=== PATIENT | female | born 1940 | race Asian ===

== ENCOUNTER 2017-11-05 01:17 | Inpatient (IN) | payer OTHER, MEDICAID, MEDICARE ==
--- NOTE | 2017-11-05 01:52 | ED Physician Chart ---
ED Chief Complaint/HPI - Patient Information Date Seen:: 11/05/17 Time Seen:: 01:35 Chief Complaint:: shortness of breath History of Present Illness:: Patient states shortness of breath for 1 week. No chest pain. No fever. Patient has had a cough productive of whitish sputum. Allergies:: Allergies Allergy/AdvReac Type Severity Reaction Status Date / Time aspirin Allergy Verified 09/02/17 17:07 Vitals:: Vital Signs - 8 hr 11/05/17 11/05/17 01:25 01:27 Temp 97.8 F 98 F HR 112 115 RR 28 20 BP 158/71 158/71 O2 Sat % 95 93 Historian:: Patient Review:: Nurse's Note Reviewed ED Review of Systems - Review of Systems General/Constitutional: No fever, No chills Skin: No skin lesions Head: No headache Eyes: No loss of vision ENT: No earache Neck: No neck pain, No swelling Cardio Vascular: No chest pain Pulmonary: SOB, Cough GI: No nausea, No vomiting, No diarrhea G/U: No dysuria Musculoskeletal: No bone or joint pain Endocrine: No polyuria Psychiatric: No prior psych history, No depression Hematopoietic: No bruising Allergic/Immuno: No urticaria Neurological: No syncope ED Past Medical History - Past Medical History Past Medical History: HTN, Asthma/COPD, Other (ascites) Family History: HTN, Other (asthma) Social History: Non Smoker, No Alcohol Surgical History: Appendectomy, Cholecystectomy Psychiatricy History: None Medication: Reviewed Family Medical History - Family Member Mother Ethnicity: Non- Living Status: Hx Family Cancer: No Hx Family Coronary Artery Disease: No Hx Family Congestive Heart Failure: No Hx Family Hypertension: No Hx Family Stroke: No Hx Family Diabetes: No Hx Family Seizures: No Hx Family Dementia: No Hx Family AIDS: No Hx Family HIV: No Hx Family COPD: No Hx Family Hepatitis: No Hx Family Psychiatric Problems: No Hx Family Tuberculosis: No Father Hx Family Hypertension: Yes ED Physical Exam - Physical Examination General/Constitutional: Well-developed, well-nourished, Alert, No distress Head: Atraumatic Eyes: Lids, conjuctiva normal Skin: Nl inspection, No rash ENMT: External ears, nose nl, TM canals nl, Nasal exam nl Neck: No nuchal rigidity Respiratory: Nl effort/Exclusion Other Respiratory comments:: diffuse 3/4 expiratory wheezing Cardio Vascular: RRR GI: No tenderness/rebounding/guarding, No organomegaly, No hernia, Normal BS's : No CVA tenderness Extremities: Normal digits & nails Neuro/Psych: Alert/oriented, Judgement/insight normal ED Labs/Radiology/EKG Results - Lab Results Comments:: Laboratory Results - last 24 hr 11/05/17 11/05/17 11/05/17 02:00 02:00 02:00 WBC 8.9 RBC 4.09 Hgb 12.6 Hct 38.3 L MCV 93.6 MCH 30.9 MCHC Differential 32.9 RDW 13.2 Plt Count 232 MPV 8.0 Neutrophils % 78.0 Lymphocytes % 18.9 L Monocytes % 3.0 Eosinophils % 0.0 Basophils % 0.1 Sodium 126 L Potassium 3.7 Chloride 94 L Carbon Dioxide 22.8 Anion Gap 12.9 BUN 11 Creatinine 0.5 L Est GFR ( Amer) TNP Est GFR (Non-Af Amer) TNP BUN/Creatinine Ratio 22.0 Glucose 146 H Calcium 9.3 Troponin I B-Natriuretic Peptide 26.5 11/05/17 02:00 WBC RBC Hgb Hct MCV MCH MCHC Differential RDW Plt Count MPV Neutrophils % Lymphocytes % Monocytes % Eosinophils % Basophils % Sodium Potassium Chloride Carbon Dioxide Anion Gap BUN Creatinine Est GFR ( Amer) Est GFR (Non-Af Amer) BUN/Creatinine Ratio Glucose Calcium Troponin I 0.01 B-Natriuretic Peptide - EKG Interpretations Rate & Rhythm: sinus tachycardia with a rate of 104 [place]: normal Comments:: Old septal myocardial infarction ED Assessment - Assessment General Assessment: At 0600 patient felt better; auscultation of the anterior chest revealed prolonged expiratory phase and externally wheezing. ED Septic Shock - . Is Septic Shock (SBP<90, OR Lactate>4 mmol\L) present?: No - <6hrs of presentation: Vital Signs: Vital Signs - 8 hr 11/05/17 11/05/17 01:25 01:27 Temp 97.8 F 98 F HR 112 115 RR 28 20 BP 158/71 158/71 O2 Sat % 95 93 ED Reassessment (Disposition) - Reassessment Reassessment Condition:: Improved - Diagnosis Diagnosis:: Acute exacerbation asthma - Patient Disposition Admitted to:: Med/Surg Admitting Medical Physician:: Romero Reyes Condition at Disposition:: Stable, Improved
[2017-11-05 02:09] LABS: % BASOPHILS 0.1 % (0.0-2.0); % LYMPHOCYTES 18.9 % (20.0-50.0); HEMATOCRIT 38.3 % (41.0-60); HEMOGLOBIN 12.6 gm/dL (12-16); LYMPHOCYTE ABSOLUTE 1.7 Th/cmm (1.5-3.0); MEAN CELL VOLUME 93.6 fl (81-100); MEAN CORPUSCULAR HEMOGLOBIN 30.9 pg (27.0-31.0); MEAN CORPUSCULAR HGB CONC 32.9 pg (28.0-36.0); MONOCYTE ABSOLUTE 0.3 Th/cmm (0.3-1.0); NEUTROPHILE ABSOLUTE 6.9 Th/cmm (1.8-8.0); PLATELET COUNT 232 Th/cmm (150-400); RED BLOOD COUNT 4.09 Mil/cmm (3.80-5.20); RED CELL DISTRIBUTION WIDTH 13.2 % (11.5-20.0); WHITE BLOOD COUNT 8.9 Th/cmm (4.8-10.8)
[2017-11-05 02:24] LABS: ANION GAP 12.9 (7.0-16.0); BUN - UREA NITROGEN 11 mg/dL (7-25); CALCIUM SERUM 9.3 mg/dL (8.6-10.3); CARBON DIOXIDE 22.8 mEq/L (21.0-31.0); CHLORIDE 94 mEq/L (98-107); CREATININE - SERUM 0.5 mg/dL (0.6-1.2); GLUCOSE 146 mg/dL (70-105); POTASSIUM SERUM 3.7 mEq/L (3.5-5.1); SODIUM SERUM 126 mEq/L (136-145)
--- NOTE | 2017-11-05 07:52 | Diagnostic Imaging Report ---
Exam: Chest frontal exam HISTORY: Shortness of breath. Findings: Frontal examination of chest was reviewed, no prior studies available comparison. The study demonstrates no active pulmonic infiltrates or effusions. Mediastinal structures midline the aortic arch calcified the costophrenic angles are clear. IMPRESSION: no acute disease.
[2017-11-05] MEDS ORDERED: Albuterol/Ipratropium Neb 3 ML AERS HHN ONE (09:22)
[2017-11-05] MEDS: Albuterol/Ipratropium Neb 3 ML AERS HHN PRN (09:25)
[2017-11-05] MEDS: Calcium Carb/Vit D 500 mg/200 U Tab PO SCH (10:56)
[2017-11-05] MEDS ORDERED: Azithromycin 500 MG in Sodium Chloride 0.9% 250 ML IV SCH (11:00)
[2017-11-05] MEDS: Albuterol/Ipratropium Neb 3 ML AERS HHN SCH ×2 (12:40→20:32)
--- NOTE | 2017-11-05 13:39 | History & Physical ---
ADMIT DATE: 11/05/2017 PATIENT'S IDENTIFICATION: A 77-year-old female. CHIEF COMPLAINT: Shortness of breath. HISTORY OF PRESENT ILLNESS: A 77-year-old female with history of hypertension, asthma, COPD, history of ascites in the past, presented to Emergency Room for evaluation of shortness of breath for 1 week duration. The patient was treated outpatient with prednisone antibiotic with no improvement. The patient stated that her cough is productive in nature and being a white sputum. The patient denies any fever or chills. The patient denies any chest pain, denies any abdominal pain, denies any nausea, vomiting, diarrhea, dysuria, hematuria, hematochezia, melena. PAST MEDICAL HISTORY: Remarkable for: 1. Hypertension. 2. Asthma, COPD. 3. Gout. 4. DJD. MEDICATIONS: List has been reviewed and reconciled appropriately. ALLERGIES: The patient is allergic to aspirin. SOCIAL HISTORY: The patient lives with the family. No smoking, alcohol, or drug use. FAMILY HISTORY: Remarkable for hypertension. PAST SURGICAL HISTORY: Remarkable for appendectomy and cholecystectomy. REVIEW OF SYSTEMS: The patient denies any headache, blurred vision, double vision, dysphagia, odynophagia, runny nose, stuffy nose, fever, chills, abdominal pain, nausea, vomiting, diarrhea, dysuria, hematuria, hematochezia, melena, no seizure or syncopal episode. PHYSICAL EXAMINATION: GENERAL: The patient is alert, awake, oriented, lying in the bed. VITAL SIGNS: Temperature 97.8, pulse is 112, respiratory rate 20 and blood pressure 158/70. HEENT: Normocephalic, atraumatic. Extraocular muscles intact. Tongue more pink and coated. Poor dentition noted. No oral lesion, no exudate. No sinus tenderness. Oropharynx is congested. NECK: Supple, no JVD, no hepatojugular reflex. No lymphadenopathy, thyromegaly or carotid bruit. HEART: Both heart sounds are regular. No S3, no S4, no murmur. CHEST AND LUNGS: Equal in expansion, expiratory wheezing throughout. ABDOMEN: Soft, no guarding, no rigidity. Liver and spleen not palpable. No palpable mass. EXTREMITIES: No edema, no cyanosis or clubbing. Peripheral +2. No calf tenderness. NEUROLOGIC: Nonfocal. AVAILABLE DIAGNOSTIC DATA: White count of 8.9, hemoglobin 12.6, platelet count 232, BUN and creatinine is 11 and 0.5, glucose of 146, calcium of 9.3. B-type natriuretic peptide is 26.5. Chest x-ray done in the Emergency Room consistent with no acute cardiopulmonary disease. CLINICAL IMPRESSION: 1. Asthma, chronic obstructive pulmonary disease exacerbation. 2. Respiratory failure. 3. Outpatient treatment failure. 4. Hypertension. 5. Gout. 6. Degenerative joint disease. 7. Debility. PLAN: 1. Admit this patient to Med/Surg floor. 2. Oxygen. 3. IV steroid. 4. IV antibiotic. 5. Nebulizer treatment. 6. Appropriate home medicine reconciliation. 7. Pulmonary consult. 8. Follow lab. 9. Follow makeup sales consultant's recommendation. 10. Care plan reviewed and discussed with staff. JOB# [id number]
[2017-11-05] MEDS: methylPREDNISolone SS 40 mg Vial IVP SCH ×2 (17:08→21:24)
[2017-11-06] MEDS: Albuterol/Ipratropium Neb 3 ML AERS HHN SCH ×4 (01:22→20:03)
--- NOTE | 2017-11-06 02:49 | Consultation ---
DATE OF CONSULTATION: 11/05/2017 PULMONARY AND CRITICAL CARE CONSULTATION NOTE REASON FOR CONSULTATOIN: Shortness of breath. CONSULT NOTE: This is a 77-year-old female and history of chronic bronchial asthma, history of "COPD", presented to the hospital for 1 week history of coughing, stuffing, short of breath. The patient takes some medication including prednisone, but patient's symptoms got worse. The patient came to the hospital for further care and necessary treatment. The patient has coughing, complaints of wheezing, no chest pain, some mucoid color sputum. No fever, no swelling of the legs, no PND, no orthopnea, some chronic sinus congestion, but otherwise unremarkable. Denies of any hemoptysis or chills or fever, etc. PAST MEDICAL HISTORY: History of hypertension, history of chronic bronchial asthma, history of gout, history of degenerative joint disease. SMOKING HISTORY. Nil. ALLERGIC HISTORY: POSSIBLY ASPIRIN, questionable allergy to ____ but otherwise unremarkable. Denies of any other related symptomatology. FAMILY HISTORY: Noncontributory. SURGICAL HISTORY: Includes history of appendectomy and cholecystectomy. PHYSICAL EXAMINATION: GENERAL: This is a thin looking oriental female, awake, mild audibly wheezing, not in any acute distress. VITAL SIGNS: Recorded vitals: Temperature is 97.5, blood pressure 150/75, saturation 100% on 2 liters. HEENT: Head is essentially unremarkable. Pupils appear to be equal and reacting to light. Conjunctivae are slightly pallor. Oral cavity shows small oropharyngeal opening otherwise unremarkable. NECK: No nodes in the neck could be palpated. CHEST: Shows scattered wheezing with diminished air entry. HEART: Regular, slightly tachycardic. ABDOMEN: Soft, nontender. EXTREMITIES: Shows no peripheral edema. LABORATORY DATA: The patient's chest x-ray appears to be clear. The patient's white count is 8.9, hemoglobin 12.6, eosinophils 0, creatinine 0.5 and glucose of 146. Chest x-ray showed borderline cardiomegaly, otherwise unremarkable. IMPRESSION: 1. The patient has acute on chronic bronchial asthma. Precipitating factor is not clear, question viral source or environmental. 2. Question gastroesophageal reflux. 3. History of questionable ascites in the past. 4. Allergic rhinitis. PLANS AND SUGGESTIONS: We will continue current treatment by Dr. Reyes. We would add inhaled steroid including proton pump inhibitor and we will see how she does in the next 24-48 hours and go from there and I will be glad to follow along with you. JOB# [id number]
[2017-11-06] MEDS: methylPREDNISolone SS 40 mg Vial IVP SCH ×3 (05:02→20:56)
[2017-11-06 06:13] LABS: ALBUMIN 3.6 gm/dL (3.7-5.3); ALKALINE PHOSPHATASE 56 U/L (34-104); ANION GAP 6.9 (7.0-16.0); BILIRUBIN,TOTAL 0.5 mg/dL (0.3-1.0); BUN - UREA NITROGEN 15 mg/dL (7-25); CALCIUM SERUM 9.5 mg/dL (8.6-10.3); CARBON DIOXIDE 24.8 mEq/L (21.0-31.0); CHLORIDE 104 mEq/L (98-107); CREATININE - SERUM 0.6 mg/dL (0.6-1.2); GLUCOSE 141 mg/dL (70-105); POTASSIUM SERUM 3.7 mEq/L (3.5-5.1); SGOT 47 U/L (13-39); SGPT/ALT 30 U/L (7-52); SODIUM SERUM 132 mEq/L (136-145); TOTAL PROTEIN,SERUM 7.1 gm/dL (6.0-8.3)
[2017-11-06] MEDS: Budesonide 0.5 Mg/2 mL Ud HHN SCH ×2 (07:07→20:04)
[2017-11-06 07:22] LABS: % BASOPHILS 0.1 % (0.0-2.0); % EOSINOPHILS 0.2 % (0.0-5.0); % LYMPHOCYTES 14.5 % (20.0-50.0); % NEUTROPHILS 81.2 % (40.0-80.0); HEMATOCRIT 37.1 % (41.0-60); HEMOGLOBIN 12.3 gm/dL (12-16); MEAN CELL VOLUME 93.5 fl (81-100); MEAN CORPUSCULAR HEMOGLOBIN 31.1 pg (27.0-31.0); MEAN CORPUSCULAR HGB CONC 33.2 pg (28.0-36.0); MEAN PLATELET VOLUME 9.2 fl; MONOCYTE ABSOLUTE 0.3 Th/cmm (0.3-1.0); NEUTROPHILE ABSOLUTE 5.4 Th/cmm (1.8-8.0); PLATELET COUNT 214 Th/cmm (150-400); RED BLOOD COUNT 3.97 Mil/cmm (3.80-5.20); RED CELL DISTRIBUTION WIDTH 12.8 % (11.5-20.0); WHITE BLOOD COUNT 6.7 Th/cmm (4.8-10.8)
[2017-11-06 08:56] LABS: pH 7.42 (7.35-7.45)
[2017-11-06] MEDS: Calcium Carb/Vit D 500 mg/200 U Tab PO SCH (09:05)
[2017-11-06] MEDS: Pantoprazole 40 mg EC Tab PO SCH (09:06)
--- NOTE | 2017-11-06 10:55 | Diagnostic Imaging Report ---
Chest x-ray single view History: Shortness of breath Comparison 11/05/2017 The heart size is normal. No focal pulmonary parenchymal processes. No hilar or mediastinal abnormalities. Impression: No acute abnormalities
--- NOTE | 2017-11-06 21:47 | Progress Notes ---
DATE: 11/06/2017 SUBJECTIVE: The patient seen and examined. The patient is lying in the bed. The patient is still complaining about this difficulty in breathing. The patient has a productive cough and congestion. The patient denies any chest pain, nausea or vomiting. PHYSICAL EXAMINATION: VITAL SIGNS: Temperature 97.3, pulse 86, respiratory rate 18, blood pressure 134/72. HEENT: Normocephalic, atraumatic. Extraocular muscles intact. Tongue was pink and coated. NECK: Supple. No JVD, lymphadenopathy, thyromegaly or carotid bruit. HEART: Both heart sounds are regular. CHEST: Lung equal in expansion, expiratory wheezing throughout. ABDOMEN: Soft. No guarding, rigidity. Bowel sounds are present. No palpable mass. EXTREMITIES: No edema. NEUROLOGIC: Nonfocal. CLINICAL IMPRESSION: 1. Acute respiratory failure. 2. Asthma, chronic obstructive pulmonary disease exacerbation. 3. Hypertension. 4. Gout. 5. Degenerative joint disease. 6. Debility. 7. Decline in self-care and mobility. PLAN: 1. Med/Surg status. 2. Continue oxygen. 3. IV steroid. 4. IV antibiotic. 5. Pulmonary toilet. 6. General nursing care. 7. Pulmonary followup. 8. Follow lab. 9. Follow up on consult and recommendation. 10. Care plan reviewed and discussed with staff. JOB# [id number]
[2017-11-07] MEDS: Albuterol/Ipratropium Neb 3 ML AERS HHN SCH ×3 (00:41→19:26)
--- NOTE | 2017-11-07 03:24 | Progress Notes ---
DATE: 11/06/2017 PROBLEM LIST: 1. Acute bronchial asthma. 2. Underlying history of possibly hypertension. SYMPTOMS: The patient is doing much better compared to yesterday. She is able to go to the bathroom without much of shortness of breath, etc. PHYSICAL EXAMINATION: VITAL SIGNS: T-max 96.5, blood pressure 140/68, saturation 100% on 1-2 liters per minute. NECK: Veins not visualized. CHEST: Shows significantly improved wheezing with very minimally residual. HEART: Regular. ABDOMEN: Soft, nontender. LABORATORY DATA: The patient's white count is 6.7, hemoglobin is 12.3 and the patient's electrolytes, sodium is 132 and anion gap is low and pO2 is 54 on room air and the patient's chest x-ray done this morning shows fairly clear. ASSESSMENT: The patient is clinically stable, improving remarkably, still moderately hypoxemic. PLANS AND SUGGESTIONS: We will continue current treatment. 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 We will repeat ABG again for assess need of her O2 and go from there. JOB# [id number]
[2017-11-07] MEDS: methylPREDNISolone SS 40 mg Vial IVP SCH ×3 (05:13→20:45)
[2017-11-07 05:21] LABS: % BASOPHILS 0.1 % (0.0-2.0); % LYMPHOCYTES 19.1 % (20.0-50.0); % NEUTROPHILS 72.8 % (40.0-80.0); HEMATOCRIT 37.1 % (41.0-60); HEMOGLOBIN 12.4 gm/dL (12-16); LYMPHOCYTE ABSOLUTE 1.1 Th/cmm (1.5-3.0); MEAN CELL VOLUME 93.4 fl (81-100); MEAN CORPUSCULAR HEMOGLOBIN 31.3 pg (27.0-31.0); MEAN CORPUSCULAR HGB CONC 33.5 pg (28.0-36.0); MONOCYTE ABSOLUTE 0.5 Th/cmm (0.3-1.0); NEUTROPHILE ABSOLUTE 4.1 Th/cmm (1.8-8.0); PLATELET COUNT 232 Th/cmm (150-400); RED BLOOD COUNT 3.97 Mil/cmm (3.80-5.20); RED CELL DISTRIBUTION WIDTH 13.2 % (11.5-20.0); WHITE BLOOD COUNT 5.7 Th/cmm (4.8-10.8)
[2017-11-07 05:45] LABS: ALB/GLOB RATIO 1.1 (1.0-1.8); ALBUMIN 3.5 gm/dL (3.7-5.3); ALKALINE PHOSPHATASE 52 U/L (34-104); ANION GAP 9.4 (7.0-16.0); BILIRUBIN,TOTAL 0.4 mg/dL (0.3-1.0); BUN - UREA NITROGEN 15 mg/dL (7-25); CALCIUM SERUM 9.3 mg/dL (8.6-10.3); CARBON DIOXIDE 28.9 mEq/L (21.0-31.0); CHLORIDE 99 mEq/L (98-107); CREATININE - SERUM 0.6 mg/dL (0.6-1.2); GLUCOSE 136 mg/dL (70-105); POTASSIUM SERUM 3.3 mEq/L (3.5-5.1); SGOT 37 U/L (13-39); SGPT/ALT 30 U/L (7-52); SODIUM SERUM 134 mEq/L (136-145); TOTAL PROTEIN,SERUM 6.8 gm/dL (6.0-8.3)
[2017-11-07] MEDS: Budesonide 0.5 Mg/2 mL Ud HHN SCH ×2 (06:48→19:26)
[2017-11-07] MEDS ORDERED: Potassium Chloride 20 mEq ER Tab PO ONE (06:49)
[2017-11-07] MEDS: Calcium Carb/Vit D 500 mg/200 U Tab PO SCH (08:56)
[2017-11-07] MEDS: Pantoprazole 40 mg EC Tab PO SCH (08:56)
[2017-11-07 08:59] LABS: pH 7.42 (7.35-7.45)
[2017-11-07] MEDS: Albuterol/Ipratropium Neb 3 ML AERS HHN PRN ×2 (11:33→15:22)
[2017-11-07 16:32] LABS: A1C % 5.7 % (4.0-6.0)
--- NOTE | 2017-11-07 22:04 | Progress Notes ---
DATE: 11/07/2017 SUBJECTIVE: The patient seen and examined. The patient is lying in the bed. The patient continues to cough and congested. The patient remained afebrile. The patient denies any fever, denies any chest pain, abdominal pain, nausea, vomiting, diarrhea. Denies any seizure or syncopal episode. PHYSICAL EXAMINATION: GENERAL: The patient is alert, awake, lying in the bed. VITAL SIGNS: Temperature 98, pulse is 75, respiratory rate 16, blood pressure 139/68. HEENT: No facial asymmetry. NECK: Supple, no JVD. HEART: Regular, no murmur. CHEST AND LUNGS: Equal in expansion, no wheezing, no crackles. ABDOMEN: Soft, no guarding or rigidity. Liver, spleen not palpable. No palpable mass. EXTREMITIES: No edema, no cyanosis. NEUROLOGIC: Nonfocal. CLINICAL IMPRESSION: 1. Chronic obstructive pulmonary disease exacerbation. 2. Respiratory failure. 3. Hypertension. 4. Degenerative joint disease. 5. Gout. 6. Debility. PLAN: 1. Continue oxygen. 2. Nebulizer treatment. 3. Pulmonary toilet. 4. IV antibiotic. 5. IV steroid. 6. Mucinex. 7. General nursing care. 8. Follow lab. 9. Follow consult recommendation. 10. Care plan reviewed and discussed with staff. JOB# [id number]
[2017-11-08] MEDS: Albuterol/Ipratropium Neb 3 ML AERS HHN SCH ×4 (00:18→18:58)
--- NOTE | 2017-11-08 02:36 | Progress Notes ---
DATE: 11/07/2017 PROBLEM LIST: 1. Hypoxemia respiratory failure. 2. Persistent wheezing with chronic bronchial asthma. SYMPTOMS: Nil. SUBJECTIVE: The patient is feeling a little better, still shortness of breath. No other specific new symptoms. PHYSICAL EXAMINATION: VITAL SIGNS: Temperature is 98.5, blood pressure 129/70, saturation 100%. NECK: Veins not visualized. CHEST: Shows diminished air entry with occasional rhonchi. HEART: Regular. ABDOMEN: Soft, nontender. LABORATORY DATA: The patient's WBC is 5.7. ABG shows pO2 of 52. ASSESSMENT: The patient is still wheezing, still hypoxemic. PLANS AND SUGGESTIONS: We will get a CT of the chest for better evaluation. Repeat ABG tomorrow again, see how it is and go from there. JOB# [id number]
[2017-11-08] MEDS: methylPREDNISolone SS 40 mg Vial IVP SCH (05:03)
[2017-11-08 07:11] LABS: % BASOPHILS 0.1 % (0.0-2.0); % EOSINOPHILS 0.1 % (0.0-5.0); % LYMPHOCYTES 14.6 % (20.0-50.0); % MONOCYTES 10.2 % (2.0-10.0); HEMATOCRIT 37.9 % (41.0-60); HEMOGLOBIN 12.8 gm/dL (12-16); LYMPHOCYTE ABSOLUTE 0.8 Th/cmm (1.5-3.0); MEAN CELL VOLUME 93.6 fl (81-100); MEAN CORPUSCULAR HEMOGLOBIN 31.5 pg (27.0-31.0); MEAN CORPUSCULAR HGB CONC 33.7 pg (28.0-36.0); MEAN PLATELET VOLUME 8.1 fl; MONOCYTE ABSOLUTE 0.6 Th/cmm (0.3-1.0); NEUTROPHILE ABSOLUTE 4.4 Th/cmm (1.8-8.0); PLATELET COUNT 272 Th/cmm (150-400); RED BLOOD COUNT 4.05 Mil/cmm (3.80-5.20); RED CELL DISTRIBUTION WIDTH 13.2 % (11.5-20.0); WHITE BLOOD COUNT 5.8 Th/cmm (4.8-10.8)
[2017-11-08 07:37] LABS: ALB/GLOB RATIO 1.1 (1.0-1.8); ALBUMIN 3.6 gm/dL (3.7-5.3); ALKALINE PHOSPHATASE 53 U/L (34-104); ANION GAP 10.4 (7.0-16.0); BILIRUBIN,TOTAL 0.6 mg/dL (0.3-1.0); BUN - UREA NITROGEN 16 mg/dL (7-25); CALCIUM SERUM 9.3 mg/dL (8.6-10.3); CARBON DIOXIDE 30.7 mEq/L (21.0-31.0); CHLORIDE 99 mEq/L (98-107); CREATININE - SERUM 0.7 mg/dL (0.6-1.2); GLUCOSE 167 mg/dL (70-105); POTASSIUM SERUM 3.1 mEq/L (3.5-5.1); SGOT 31 U/L (13-39); SGPT/ALT 33 U/L (7-52); SODIUM SERUM 137 mEq/L (136-145)
--- NOTE | 2017-11-08 08:48 | Diagnostic Imaging Report ---
CT scan of the chest without intravenous contrast HISTORY: Shortness of breath, hypoxemia Total DLP equals 123 CTDI equals 8.3 Axial sections were obtained from a level above the clavicles down to level below the diaphragm. The heart size is normal. Coronary artery and atherosclerotic vascular calcification is seen. Normal-sized lymph nodes are seen within the mediastinum. No abnormal masses. No abnormal focal pulmonary parenchymal processes. No abnormal pulmonary nodules or masses. No pleural fluid is seen. IMPRESSION: 1. No acute abnormalities 2. Coronary artery and atherosclerotic vascular calcification
[2017-11-08 09:01] LABS: ALLEN TEST Positive; pH 7.47 (7.35-7.45)
[2017-11-08] MEDS: Pantoprazole 40 mg EC Tab PO SCH (09:22)
[2017-11-08] MEDS: Calcium Carb/Vit D 500 mg/200 U Tab PO SCH (09:22)
--- NOTE | 2017-11-08 10:04 | Progress Notes ---
DATE: 11/08/2017 SUBJECTIVE: The patient seen and examined. The patient is lying in the bed. The patient stated that she is feeling better than yesterday. The patient had a CT scan of the chest, which was unremarkable for any pneumonia. PHYSICAL EXAMINATION: VITAL SIGNS: Temperature 98, pulse is 83, respiratory 18, blood pressure 151/80. HEENT: No facial asymmetry. NECK: Supple, no JVD. HEART: Regular. CHEST: Lung equal in expansion, expiratory wheezing. ABDOMEN: Soft. No guarding, rigidity. Bowel sounds are present. No palpable mass. EXTREMITIES: No edema, no cyanosis. NEUROLOGIC: Nonfocal. LABORATORY DATA: Available labs and CT chest reviewed. CLINICAL IMPRESSION: 1. Acute respiratory failure. 2. Asthma, chronic obstructive pulmonary disease exacerbation. 3. Hypertension. 4. Gout. 5. Degenerative joint disease. 6. Debility. ADDITIONAL DIAGNOSIS: Atherosclerotic heart disease. PLAN: 1. Continue oxygen. 2. Nebulizer treatment. 3. Pulmonary toilet. 4. Decrease IV steroid. 5. IV antibiotic. 6. General nursing care. 7. Follow lab. 8. Follow consult recommendation. 9. Care plan reviewed and discussed with staff. JOB# [id number]
[2017-11-08] MEDS ORDERED: Probiotic Screen MC PRN (12:08)
[2017-11-08] MEDS ORDERED: methylPREDNISolone SS 40 mg Vial IVP SCH (13:00)
[2017-11-08] MEDS: Albuterol/Ipratropium Neb 3 ML AERS HHN PRN (16:12)
[2017-11-08] MEDS: Budesonide 0.5 Mg/2 mL Ud HHN SCH (18:58)
[2017-11-08] MEDS ORDERED: predniSONE 5 mg/5 mL UDC PO SCH (21:00)
[2017-11-08] MEDS: Albuterol Sulfate ER 4 mg Tab PO SCH (21:08)
[2017-11-09] MEDS: Albuterol/Ipratropium Neb 3 ML AERS HHN SCH ×3 (00:32→12:57)
[2017-11-09 06:21] LABS: HEMATOCRIT 40.8 % (41.0-60); HEMOGLOBIN 13.4 gm/dL (12-16); LYMPHOCYTE ABSOLUTE 1.5 Th/cmm (1.5-3.0); MEAN CELL VOLUME 92.7 fl (81-100); MEAN CORPUSCULAR HEMOGLOBIN 30.5 pg (27.0-31.0); MEAN PLATELET VOLUME 7.9 fl; NEUTROPHILE ABSOLUTE 5.3 Th/cmm (1.8-8.0); PLATELET COUNT 296 Th/cmm (150-400); RED CELL DISTRIBUTION WIDTH 13.2 % (11.5-20.0)
[2017-11-09 06:40] LABS: WHITE BLOOD COUNT 8.8 Th/cmm (4.8-10.8)
[2017-11-09 07:09] LABS: ALB/GLOB RATIO 1.1 (1.0-1.8); ALBUMIN 3.7 gm/dL (3.7-5.3); ALKALINE PHOSPHATASE 54 U/L (34-104); BILIRUBIN,TOTAL 0.6 mg/dL (0.3-1.0); BUN - UREA NITROGEN 24 mg/dL (7-25); CALCIUM SERUM 9.6 mg/dL (8.6-10.3); CARBON DIOXIDE 32.4 mEq/L (21.0-31.0); CHLORIDE 97 mEq/L (98-107); CREATININE - SERUM 0.6 mg/dL (0.6-1.2); GLUCOSE 114 mg/dL (70-105); POTASSIUM SERUM 3.4 mEq/L (3.5-5.1); SGOT 26 U/L (13-39); SGPT/ALT 34 U/L (7-52); SODIUM SERUM 136 mEq/L (136-145); TOTAL PROTEIN,SERUM 7.2 gm/dL (6.0-8.3)
[2017-11-09 07:33] LABS: LYMPHOCYTE 19 % (20-50); MONOCYTE 13 % (2-10); NEUTROPHILS 68 % (40-80); TOTAL CELLS COUNTED 100
[2017-11-09] MEDS: Budesonide 0.5 Mg/2 mL Ud HHN SCH (07:45)
[2017-11-09] MEDS ORDERED: predniSONE 5 mg/5 mL UDC PO SCH (09:00)
[2017-11-09] MEDS: Albuterol Sulfate ER 4 mg Tab PO SCH ×2 (09:05→16:40)
[2017-11-09] MEDS: Calcium Carb/Vit D 500 mg/200 U Tab PO SCH (09:05)
[2017-11-09] MEDS: Pantoprazole 40 mg EC Tab PO SCH (09:06)
[2017-11-09 09:25] LABS: pH 7.44 (7.35-7.45)
[2017-11-09 09:26] LABS: ALLEN TEST POSITIVE
--- NOTE | 2017-11-09 11:08 | Progress Notes ---
DATE: 11/08/2017 PULMONARY PROGRESS NOTE PROBLEM LIST: 1. Acute on chronic bronchial asthma. 2. Still persistent bronchospasm with hypoxemia. SYMPTOMS: Nil. The patient is feeling better, but still gets periodically shortness of breath and very minimal bronchorrhea. No distress, etc. PHYSICAL EXAMINATION: VITAL SIGNS: T-max 97.4, blood pressure 116/81, saturation 97 on 2 liters per minute. NECK: Veins not visualized. CHEST: Shows diminished air entry with occasional rhonchi. HEART: Regular. ABDOMEN: Soft, nontender. EXTREMITIES: Shows no peripheral edema. LABORATORY DATA: The patient's white count is 5.8, hemoglobin 12.8, and eosinophil 1, monocyte is 5, and the patient's potassium is 3.1. The patient's pO2 still in low 50s with saturation [address] of the chest shows fairly clear. ASSESSMENT: The patient has persistent hypoxemia. The patient may have some fixed airway disease from chronic asthma, poorly treated. PLANS AND SUGGESTIONS: We will recheck again one time for room air ABG. If it is low, we will arrange for home oxygen temporary and possibly discharge planning may be contemplated hopefully tomorrow as long as need for oxygen if needed is arranged and go from there. JOB# [id number]
--- NOTE | 2017-11-09 11:27 | Discharge Summary ---
DATE OF DISCHARGE: 11/09/2017 PRINCIPAL DIAGNOSES: 1. Acute respiratory failure. 2. Asthma, chronic obstructive pulmonary disease exacerbation. 3. Hypertension. 4. Coronary artery disease. 5. Gout. 6. Degenerative joint disease. 7. Debility. BRIEF STATEMENT FOR THE REASON FOR ADMISSION: A 77-year-old female presented to Emergency Room for evaluation of increasing shortness of breath, productive cough, and congestion. After being evaluated the patient was admitted to the hospital for further treatment. Please refer to my H and P for further information. HOSPITAL COURSE: The patient was admitted to Med/Surg floor. The patient was given oxygen, steroids, nebulizer treatment, IV antibiotic as well. Pulmonary consultation requested. The patient did have a CT chest, which was unremarkable for any pneumonia or any tumor. The patient did have atherosclerotic heart disease on CT chest. The patient did not have any chest pain as well. The patient was improving with the treatment plan as prescribed by myself and technical solutions consultant. The patient' IV steroid was decreased and the patient was feeling fairly well. A decision was made that the patient should be discharged to home. The patient is discharged home in stable condition with prescription of prednisone 50 mg daily for 5 days, azithromycin 500 mg daily for 7 days along with inhalation therapy to be continued 4 times a day until the patient gets better. The patient was also advised to take Mucinex 1 b.i.d. as well. The patient was also informed to go to Emergency Room or call 911 if the patient worsening shortness of breath. The patient was given a new prescription along with other medication was reconciliated. [facility]# [id number]
--- NOTE | 2017-11-09 23:03 | Progress Notes ---
DATE: 11/09/2017 SUBJECTIVE: The patient seen and examined. The patient feels better. The patient is ambulatory. The patient denies any chest pain, denies any increasing short of breath, palpitation, dizziness, nausea, vomiting, or diarrhea. PHYSICAL EXAMINATION: VITAL SIGNS: Temperature 98, pulse is 96, respiratory rate is 18, and blood pressure 141/72. HEENT: No facial asymmetry. NECK: Supple, no JVD. HEART: Regular, no murmur. CHEST: Lung equal in expansion. LUNGS: No wheezing, no crackles. ABDOMEN: Soft. EXTREMITIES: No edema or cyanosis. NEUROLOGIC: Alert, awake, follows command. No gross neuro deficit noted. CLINICAL IMPRESSION: 1. Acute respiratory failure. 2. Asthma, chronic obstructive pulmonary disease exacerbation. 3. Hypertension. 4. Gout. 5. Degenerative joint disease. 6. Debility. PLAN: Discharge this patient to home, CPOE done. Medications reconciled. JOB# [id number]
--- NOTE | 2017-11-10 03:03 | Progress Notes ---
DATE: 11/09/2017 PROBLEM LIST: 1. Acute on chronic respiratory failure. 2. Severe bronchial asthma. 3. Possibly fixed airway disease. 4. Question obstructive sleep apnea syndrome. SYMPTOMS: Nil. Minimal coughing, shortness of breath minimal, discharge planning in process, has gotten oxygen at home. PHYSICAL EXAMINATION: VITAL SIGNS: Temperature is 97.3, blood pressure 135/72, saturation is 98 on 2 liters. NECK: Veins not visualized. CHEST: Shows occasional wheezing with diminished air entry. HEART: Regular. ABDOMEN: Soft, nontender. LABORATORY DATA: White count is 8.8, hemoglobin 13.4. ABG shows pCO2 of 49, pO2 is 54, not significantly changed from before. Potassium is 3.4. ASSESSMENT: The patient was clinically stable, improving. PLANS AND SUGGESTIONS: Discussed with maximo Will for discharge. If authorized, we will follow up as an outpatient. JOB# [id number]
== END 2017-11-09 19:00 | disposition home health service (06) | DRG 189 ==
LOC: ER 01:17 → MSI 08:44
PROVIDERS: ADMIT Internal Medicine; ATTEND Internal Medicine
DX: J96.01 Acute respiratory failure with hypoxia (principal); J44.1 Chronic obstructive pulmonary disease with (acute) exacerbation; J45.901 Unspecified asthma with (acute) exacerbation; K21.9 Gastro-esophageal reflux disease without esophagitis; I10 Essential (primary) hypertension; M10.9 Gout, unspecified; M19.90 Unspecified osteoarthritis, unspecified site; R53.81 Other malaise; I25.10 Atherosclerotic heart disease of native coronary artery without angina pectoris; J30.9 Allergic rhinitis, unspecified; Z88.6 Allergy status to analgesic agent; Z82.49 Family history of ischemic heart disease and other diseases of the circulatory system; Z90.49 Acquired absence of other specified parts of digestive tract
CPT/HCPCS: 36415-UA; 36600-90; 71045-TC; 71046-TC; 71250-TC; 80048-TC; 80053-TC; 82803-TC; 83036-90; 83880-TC; 84484-TC; 85007-TC; 85025-TC; 85027-TC; 93005; 94640; 94760; 96374; J0456; J2920; J2930; J7512; Z7610